=== PATIENT | male | born 1975 | race Caucasian/White ===

== ENCOUNTER 2017-02-03 05:02 | Inpatient (IN) | payer OTHER ==
[~2017-02-03] VITALS: Ht 170.2 cm; Wt 77.1 kg
[2017-02-03 07:34] LABS: BASOPHILS % 0.4 % (0.0-2.0); EOSINOPHILS % 0.4 % (0.0-5.0); HEMATOCRIT. 46.1 % (42.0-52.0); HEMOGLOBIN. 15.8 g/dL (14.0-18.0); LYMPHOCYTES % 10.2 % (20.0-50.0); MEAN CORPUSCULAR HEMOGLOBIN 33.2 pg (28.0-32.0); MEAN CORPUSCULAR VOLUME 97.1 fL (80.0-94.0); MEAN PLATELET VOLUME 7.8 fl (7.4-10.4); MONOCYTES % 4.9 % (2.0-8.0); NEUTROPHILS % 84.1 % (40.0-76.0); PLATELET 128 x1000/uL (130-400); RED BLOOD CELL COUNT 4.75 mill/uL (4.7-6.1); RED CELL DISTRIBUTION WIDTH 13.1 % (11.6-14.6)
[2017-02-03 07:41] LABS: CHLORIDE 104 mEq/L (98-107)
[2017-02-03 07:45] LABS: PROTHROMBIN TIME 10.1 sec (9.4-11.6)
[2017-02-03 07:49] LABS: CARBON DIOXIDE 24 mEq/L (21-32)
[2017-02-03] MEDS ORDERED: SODIUM CHLORIDE 0.9% 1,000 ML IV ONE (10:15)
[2017-02-03 10:42] VITALS: BP 170/103
[2017-02-03 10:45] VITALS: BP 170/103
[2017-02-03] MEDS ORDERED: DEXT 5%/0.45% NACL 500ML 500 ML IV SCH (11:30)
[2017-02-03] MEDS ORDERED: ENALAPRIL 2.5MG/2ML VIAL 2ML IV PRN (11:30)
[2017-02-03] MEDS ORDERED: HYDROMORPHONE HCL/PF 2MG/ML CPJ IV PRN (11:30)
[2017-02-03] MEDS ORDERED: ENALAPRIL 1.25 MG in DEXTROSE 5% WATER 50 ML IV PRN (12:00)
[2017-02-03] MEDS ORDERED: DEXT 5%/0.45% NACL 500ML 1,000 ML IV SCH (12:40)
[2017-02-03] MEDS ORDERED: DEXT 5%/0.45% NACL 1000ML 1,000 ML IV SCH (12:43)
[2017-02-03 17:52] VITALS: BP 150/89
== END 2017-02-03 18:00 | disposition home or self-care (01) | DRG 395 ==
LOC: ER 05:12 → 6EST 07:37 → ENRESERV 08:50
PROVIDERS: ADMIT Hospitalist; ATTEND Hospitalist
PROC: 0DCP8ZZ Extirpation of Matter from Rectum, Via Natural or Artificial Opening Endoscopic (ICD-10-PCS; principal; 2017-02-03)
DX: T18.5XXA Foreign body in anus and rectum, initial encounter (principal); F17.210 Nicotine dependence, cigarettes, uncomplicated; J45.909 Unspecified asthma, uncomplicated; X58.XXXA Exposure to other specified factors, initial encounter; Z98.52 Vasectomy status; Y93.89 Activity, other specified; Y92.89 Other specified places as the place of occurrence of the external cause; Y99.8 Other external cause status
CPT/HCPCS: 36415; 74010; 80053; 85025; 85610; 86850; 86900; 99285; J3490; J7030; J7060